=== PATIENT | male | born 1980 ===

== ENCOUNTER 2019-05-22 08:30 | Inpatient (IN) | payer OTHER ==
[~2019-05-22] VITALS: Ht 185.4 cm; Wt 77.9 kg
[2019-05-22 10:00] LABS: BASOPHILS ABSOLUTE AUTO 0.02 K/mm3 (0.00-0.23); BASOPHILS PERCENT AUTO 0 % (0-2); EOSINOPHILS PERCENT AUTO 0 % (0-6); Hematocrit 48.4 % (37.0-53.0); Hemoglobin 16.6 g/dL (13.5-17.5); IMMATURE GRAN ABSOLUTE AUTO 0.07 K/mm3 (0.00-0.10); IMMATURE GRAN PERCENT AUTO 1 % (0-1); LYMPHOCYTES ABSOLUTE AUTO 0.46 K/mm3 (0.84-5.20); LYMPHOCYTES PERCENT AUTO 3 % (21-46); MONOCYTES ABSOLUTE AUTO 0.66 K/mm3 (0.16-1.47); MONOCYTES PERCENT AUTO 5 % (4-13); Mean Corpuscular HGB 29.3 pg (26.0-34.0); Mean Corpuscular HGB Conc 34.3 g/dL (31.5-36.5); Mean Corpuscular Volume 85 fL (80-100); Mean Platelet Volume 11.1 fL (9.1-12.4); NEUTROPHILS ABSOLUTE AUTO 13.05 K/mm3 (1.96-9.15); NEUTROPHILS PERCENT AUTO 92 % (41-73); Platelet Count 148 K/mm3 (150-400); RDW Coefficient Variation 13.7 % (11.7-14.2); Red Blood Cell Count 5.67 M/mm3 (4.30-5.90); White Blood Cell Count 14.26 K/mm3 (4.00-11.30)
[2019-05-22 10:17] LABS: Alanine Aminotransfer (ALT/SGP 48 U/L (12-78); Albumin, Blood 3.7 g/dL (3.4-5.0); Albumin/Globulin Ratio 0.8 (0.8-1.8); Anion Gap 11 mmol/L (6-16); Aspartate Aminotrans (AST/SGOT 73 U/L (12-37); Blood Urea Nitrogen 28 mg/dL (8-24); Bun/Creatinine Ratio 36.5 (12.0-20.0); CO2, Blood 24 mmol/L (21-32); Calcium, Blood 9.6 mg/dL (8.5-10.1); Chloride, Blood 105 mmol/L (98-108); Creatinine, Blood 0.77 mg/dL (0.60-1.20); Ethanol (Alcohol), Blood, Med <3 mg/dL; Globulin, Blood 4.4 g/dL (2.2-4.0); Glomerular Filtration Rate >60 (60-); Glucose, Blood 137 mg/dL (70-99); Potassium, Blood 3.3 mmol/L (3.5-5.5); Sodium, Blood 140 mmol/L (136-145); Total Protein, Blood 8.1 g/dL (6.4-8.2)
[2019-05-22 10:18] LABS: Alk Phos 73 U/L (50-136)
[2019-05-22] MEDS ORDERED: Catapres0.1 MG PO (11:39)
[2019-05-22 13:33] LABS: Salicylate <1.7 mg/dL (2.8-20.0)
[2019-05-22 13:36] LABS: Acetaminophen, Random <2.0 ug/mL (10.0-30.0)
[2019-05-22 13:51] LABS: U Amphetamine Screen Not Detected; U Methamphetamine Screen Not Detected
[2019-05-22 13:52] LABS: U Barbituate Screen Not Detected; U Benzodiazapine Screen Not Detected; U Buprenorphine Screen Not Detected; U Cannabinoids Screen DETECTED; U Cocaine Screen Not Detected; U Methadone Screen Not Detected; U Opiates Screen Not Detected; U Oxycodone Screen Not Detected; U Phencyclidine Screen Not Detected; U Propoxyphene Screen Not Detected
[2019-05-22 14:50] LABS: Creatine Kinase MB 60.3 ng/mL (0.0-3.6); Creatine Kinase MB Index 4.3 (0.0-4.0)
[2019-05-22 15:28] LABS: Source, Urine Catheter
[2019-05-22 15:35] LABS: Blood, Urine 2+ (Neg); Glucose Qualitative, Urine Neg (Neg); Ketones, Urine 3+ (Neg); Leukocyte Esterase, Urine 1+ (Neg); Nitrite, Urine Neg (Neg); Protein, Urine 2+ (Neg); Specific Gravity, Urine 1.025 (1.003-1.022); Urobilinogen, Urine 2+ (Normal)
[2019-05-22 15:42] LABS: Appearance, Urine Clear (Clear); Bilirubin, Urine 1+ (Neg); Color, Urine Amber (P-Yellow)
[2019-05-22 15:44] LABS: Mucus Mod (0-Heavy)
[2019-05-22 15:47] LABS: Yeast/Fungi Urine Few /hpf
[2019-05-22 15:48] LABS: Bacteria Few /hpf; Squamous Epithelial Cells Not Seen /hpf (Few)
[2019-05-22 18:19] LABS: International Normalized Ratio 1.08; Prothrombin Time Results 11.5 Sec (9.7-11.5)
--- NOTE | 2019-05-22 18:40 | NUR ---
no acute changes to patient.
--- NOTE | 2019-05-22 18:42 | NUR ---
PT ADMITTED FROM ED THIS SHIFT. HE IS NON VERBAL, ONLY MOANS. PT HAS NO PEDAL PULSE IN RIGHT DORSAL . HE CANNOT ANSWER ANY QUESTIONS. WAITING ON LABS. PT ON CAMERA.
--- NOTE | 2019-05-22 20:15 | NUR ---
NS BOLUS INFUSING AT 999 mL/HR. IV HEPARIN 4,200 GIVEN PER [facility]. IV HEPARIN INFUSING AT 14.6 mL/HR. PATIENT MOANING AND AGITATED IN BED. NON-VERBAL AT THIS TIME.
--- NOTE | 2019-05-22 20:18 | NUR ---
[facility] EUGENE REPORTS ST140'S.
--- NOTE | 2019-05-22 20:33 | NUR ---
ST [address]'S. PATIENT LESS AGITATED AND RESTING. NON-VERBAL WITH LESS MOANING. NS BOLUS INFUSING AND IV HEPARIN INFUSING.
--- NOTE | 2019-05-22 21:00 | NUR ---
VINCENT SEPTIC TANK SERVICER ORDERED BILATERAL SOFT WRIST RESTRAINTS. PATIENT PULLING AT IV LINES AND TELE CORDS AND AGITATED AT THIS TIME. NS INFUSING AT 125 mL/HR. IV ROCEPH STARTED. IV HEPARIN INFUSING. WILL CONTINUE TO MONITOR.
--- NOTE | 2019-05-22 23:04 | NUR ---
BP 161/110. IV TRANDATE 10 MG GIVEN PER [facility] FOR SBP >150. TELE MONITORING. HR CHANGED FROM ST 113 TO NSR 94.
--- NOTE | 2019-05-22 23:10 | NUR ---
ELECTROENCEPHALOGRAPHIC TECHNICIAN REPORTS PATIENT WENT FROM ST 112 TO NSR 91. IV TRANDATE 10 MG GIVEN PER [facility] FOR SBP>150.
--- NOTE | 2019-05-23 00:08 | NUR ---
PATIENT TRANSFER TO ICU 13. REPORT GIVEN TO SARAH BAKER.
--- NOTE | 2019-05-23 00:48 | NUR ---
RECEIVED PT FROM MEDICAL NURSE AT 2355, WITH BEDSIDE UPDATE. PT RESPONDS TO PAIN, BUT NOT SPEECH, NAME, OR COMMANDS. CHECKED PT FOR LICE, NONE SEEN, NO EGGS ON SHAFTS. PT GIVEN THOROUGH BATH AND HAIR WASHED, HOWEVER, HAIR IS STILL MATTED IN BACK. SOFT RESTRAINTS READJUSTED TO NEW BED. PULSES BLE DOPPLERED.
--- NOTE | 2019-05-23 00:57 | NUR ---
INCREASED KG ON HEPARIN GTT FROM 56KG TO 59KG PER PHARMACY
[2019-05-23 02:34] LABS: BASOPHILS ABSOLUTE AUTO 0.01 K/mm3 (0.00-0.23); BASOPHILS PERCENT AUTO 0 % (0-2); EOSINOPHILS ABSOLUTE AUTO 0.01 K/mm3 (0.00-0.68); EOSINOPHILS PERCENT AUTO 0 % (0-6); Hematocrit 39.1 % (37.0-53.0); Hemoglobin 13.1 g/dL (13.5-17.5); IMMATURE GRAN ABSOLUTE AUTO 0.07 K/mm3 (0.00-0.10); IMMATURE GRAN PERCENT AUTO 1 % (0-1); LYMPHOCYTES ABSOLUTE AUTO 0.35 K/mm3 (0.84-5.20); LYMPHOCYTES PERCENT AUTO 2 % (21-46); MONOCYTES ABSOLUTE AUTO 0.85 K/mm3 (0.16-1.47); MONOCYTES PERCENT AUTO 6 % (4-13); Mean Corpuscular HGB 29.3 pg (26.0-34.0); Mean Corpuscular HGB Conc 33.5 g/dL (31.5-36.5); Mean Platelet Volume 10.9 fL (9.1-12.4); NEUTROPHILS ABSOLUTE AUTO 13.07 K/mm3 (1.96-9.15); NEUTROPHILS PERCENT AUTO 91 % (41-73); Platelet Count 145 K/mm3 (150-400); RDW Coefficient Variation 14.1 % (11.7-14.2); RDW Standard Deviation 42.7 fL (35.1-46.3); Red Blood Cell Count 4.47 M/mm3 (4.30-5.90); White Blood Cell Count 14.36 K/mm3 (4.00-11.30)
[2019-05-23 02:37] LABS: Mean Corpuscular Volume 88 fL (80-100)
[2019-05-23 02:58] LABS: Alanine Aminotransfer (ALT/SGP 54 U/L (12-78); Albumin, Blood 2.9 g/dL (3.4-5.0); Albumin/Globulin Ratio 0.9 (0.8-1.8); Alk Phos 54 U/L (50-136); Anion Gap 5 mmol/L (6-16); Aspartate Aminotrans (AST/SGOT 122 U/L (12-37); Bilirubin, Total 0.8 mg/dL (0.1-1.0); Blood Urea Nitrogen 19 mg/dL (8-24); CO2, Blood 25 mmol/L (21-32); Calcium, Blood 8.2 mg/dL (8.5-10.1); Chloride, Blood 115 mmol/L (98-108); Creatinine, Blood 0.79 mg/dL (0.60-1.20); Globulin, Blood 3.4 g/dL (2.2-4.0); Glomerular Filtration Rate >60 (60-); Glucose, Blood 114 mg/dL (70-99); Potassium, Blood 3.5 mmol/L (3.5-5.5); Sodium, Blood 145 mmol/L (136-145); Total Protein, Blood 6.3 g/dL (6.4-8.2)
[2019-05-23 03:07] LABS: CPK Creatine Kinase 2300 U/L (39-308)
--- NOTE | 2019-05-23 06:47 | NUR ---
PT CONTINUED TO BE RESTLESS THROUGH SHIFT, AND IS STILL NOT RESPONDING TO VOICE, ONLY PAIN AND COLD. PT TOLERATING RESTRAINTS.
--- NOTE | 2019-05-23 07:36 | NUR ---
ASSUMED CARE NOTE REPORT RECEIVED FROM SARAH RN AND OLIVIA SHORT. BEDSIDE ROUNDING DONE. PT RESTING IN BED WITH EYES CLOSED. PT MOANING INTERMITTENTLY, PER REPORT PT WITHOUT ANY FURTHER VOCALIZATIONS. SBP IN 160S, HR IN 60-70S. PER REPORT PT WITH LABETALOL PRN FOR SBP GREATER THAN 150S, BUT THE PT'S BP DOES NOT RESPOND WHILE THE HR DOES. SEE FLOWSHEET FOR VS. PT VERY EMACIATED. FEET SWOLLEN AND DISCOLORED. TOES ON BOTH FEET PURPLE/BLACK, NO BLANCHING. SKIN WARM TO TOUCH. PEDAL PULSE TO R FOOT FAINT, PER REPORT THIS IS IMPROVED FROM ADMIT WHEN THERE WAS NO PALPABLE PEDAL PULSE. PEDAL PULSE TO L FOOT STRONG. NS RUNNING AT 125ML/HR. HEPARIN GTT RUNNING AT 14U/KG/HR WITH DOSING WEIGHT OF 59KG PER ORDER, PHARMACY MANAGING. NO S/SX DISTRESS NOTED. BED IN LOWEST POSITION, UPPER SIDE RAILS RAISED. CALL LIGHT IN REACH. WILL CONT TO MONITOR PT.
--- NOTE | 2019-05-23 10:11 | NUR ---
HEPARIN TITRATE HEPARIN GTT TITRATED UP TO 15U/KG/HR PER PHARMACY ORDERS.
--- NOTE | 2019-05-23 10:39 | NUR ---
DR MORA ROUNDS DR MORA ROUNDED, PUSHPINDER, SUPERVISOR HEADING PRESENT. DR MORA AWARE OF PT'S CONTINUED AMS WITH MOANING AND OCCASIONAL SHOUTING ONLY VOCALIZATIONS. DR MORA UPDATED ON STATUS OF R PEDAL PULSE NOW PALPABLE WHERE ON ADMIT WAS BY DOPPLER ONLY. PER DR MORA, PLAN TO CONTINUE HEPARIN GTT AND PT TO REMAIN IN ICU OVERNIGHT. NO FURTHER CHANGES TO PLAN OF CARE AT THIS TIME. WILL CONT TO MONITOR PT.
--- NOTE | 2019-05-23 11:37 | NUR ---
SHIFT UPDATE PT CONTINUES TO REST WITH EYES CLOSED, AWAKENING OCCASIONALLY MOANING OR SHOUTING. WHEN CHANGING ATTENDS D/T URINARY INCONTINENCE, PT DID ASK FOR WATER. ATTEMPTS TO ELICIT FURTHER RESPONSE FROM PT UNSUCCESSFUL. HEPARIN GTT REMAINS RUNNING AT 15U/KG/HR PER PHARMACY DOSING. NS RUNNING AT 100ML/HR PER ORDERS. PT'S SBP IN 170S, LABETALOL GIVEN PER ORDERS. SEE FLOWSHEET FOR VS. WILL CONT TO MONITOR PT. BED IN LOWEST POSITION, SIDE RAILS RAISED. CALL LIGHT IN REACH.
--- NOTE | 2019-05-23 15:37 | NUR ---
ATIVAN PT YELLING OUT FOR "WATER". MOUTH SWABS USED. PT INFORMED OF REASON WHY IT IS NOT SAFE AT THIS TIME FOR PT TO HAVE WATER. PT CONTINUES TO CALL OUT FOR "WATER". ATIVAN 1MG IV GIVEN PER PRN ORDER. PT'S SBP REMAINS IN 160-170S DESPITE LABETALOL DOSE. PLAN TO TRIAL ANOTHER DOSE LABETALOL PER ORDERS WHEN DUE. WILL CONT TO MONITOR PT.
--- NOTE | 2019-05-23 18:11 | NUR ---
HYPERTENSION CALL TO DR MORA REGARDING PT'S CONTINUED SBP IN 160-180S DESPITE LABETALOL X2 AND ATIVAN FOR INCREASED AGITATION AND FENTANYL FOR POSSIBLE BEHAVIOR R/T PAIN WITH REPERFUSION TO FEET. ORDERS OBTAINED FOR HYDRALAZINE 10MG IV Q6P FOR SBP GREATER THAN 160.
--- NOTE | 2019-05-23 18:48 | NUR ---
HEPARIN HEPARIN GTT TITRATED TO 16U/KG/HR PER PHARMACY DOSING.
--- NOTE | 2019-05-23 20:00 | NUR ---
ASSUMPTION OF CARE: PT RESPONDING TO PAIN BUT NO OTHER VERBAL COMMANDS. ABLE TO REPOSITION SELF. IN SR, SBP 160-180S, HR 60-70S. SPO2 >90% ON RA. RADIAL AND PEDAL PULSES STRONG. PT IS CURRENTLY NPO, NO BM. INCONTINENT OF URINE. LWRIST AND LAC IV INFUSING WITH HEPARIN 16U AND NS 100MLS. TOES ARE BILAT BLACK AND COOL TO THE TOUCH. WILL CONTINUE TO MONITOR
--- NOTE | 2019-05-23 23:30 | NUR ---
PT AGITATED, PULLING AT RESTRAINTS, CALLING OUT. FENTANYL AND ATIVAN GIVEN EARLIER IN SHIFT WITH LITTLE EFFECT. PRECEDEX ORDER RECEIVED FROM [facility]INC[facility]. ZYPREXA IM ALSO ORDERED. PT CURRENTLY RESTING COMFORTABLY. DURING MOMENT OF AGITATION PT WAS ABLE TO VERBALIZE THAT HE NEEDED TO PEE AND WAS THIRSTY. WILL CONTINUE TO MONITOR
[2019-05-24 01:20] LABS: BASOPHILS PERCENT AUTO 0 % (0-2); EOSINOPHILS ABSOLUTE AUTO 0.01 K/mm3 (0.00-0.68); EOSINOPHILS PERCENT AUTO 0 % (0-6); Hemoglobin 12.5 g/dL (13.5-17.5); IMMATURE GRAN ABSOLUTE AUTO 0.04 K/mm3 (0.00-0.10); IMMATURE GRAN PERCENT AUTO 0 % (0-1); LYMPHOCYTES ABSOLUTE AUTO 0.31 K/mm3 (0.84-5.20); LYMPHOCYTES PERCENT AUTO 3 % (21-46); MONOCYTES ABSOLUTE AUTO 0.34 K/mm3 (0.16-1.47); MONOCYTES PERCENT AUTO 4 % (4-13); Mean Corpuscular HGB 28.9 pg (26.0-34.0); Mean Corpuscular HGB Conc 32.9 g/dL (31.5-36.5); Mean Corpuscular Volume 88 fL (80-100); Mean Platelet Volume 10.8 fL (9.1-12.4); NEUTROPHILS ABSOLUTE AUTO 8.48 K/mm3 (1.96-9.15); NEUTROPHILS PERCENT AUTO 92 % (41-73); Platelet Count 122 K/mm3 (150-400); Red Blood Cell Count 4.32 M/mm3 (4.30-5.90); White Blood Cell Count 9.18 K/mm3 (4.00-11.30)
[2019-05-24 01:32] LABS: International Normalized Ratio 1.09; Prothrombin Time Results 11.6 Sec (9.7-11.5)
[2019-05-24 01:33] LABS: Anion Gap 8 mmol/L (6-16); Blood Urea Nitrogen 8 mg/dL (8-24); Bun/Creatinine Ratio 16.3 (12.0-20.0); CO2, Blood 23 mmol/L (21-32); Calcium, Blood 8.6 mg/dL (8.5-10.1); Chloride, Blood 114 mmol/L (98-108); Creatinine, Blood 0.49 mg/dL (0.60-1.20); Glomerular Filtration Rate >60 (60-); Glucose, Blood 101 mg/dL (70-99); Potassium, Blood 2.9 mmol/L (3.5-5.5); Sodium, Blood 145 mmol/L (136-145)
--- NOTE | 2019-05-24 03:30 | NUR ---
*LATE ENTRY* FROM 2099 TO 0100 PT AGITATED, WRITHING/THRASHING IN BED, PULLING AT RESTRAINTS, CALLING OUT. AT ONE POINT PT HAD BEEN ABLE TO LOOSEN RESTRAINTS BY PULLING. PT INITIALLY GIVEN ATIVAN WITH MINIMAL EFFECT. PRN FENTANYL GIVEN WITH MINIMAL EFFECT. PT CONTINUED THRASHING, CALLING OUT, PULLING AT ATTENDS AND DISCONNECTING SPO2 MONITOR. HOSPITALIST [facility] ON UNIT AND ORDERED PRECEDEX DRIP. INITIAL TITRATION SET AT 0.2MCG. PT STILL WRITHING/THRASHING IN BED AND FIGHTING RESTRAINTS. DRIP INCREASED TO 0.4MCG WITH LITTLE EFFECT. DRIP INCREASED TO 0.7MCG WITH LITTLE EFFECT. RECEIVED ORDERS FROM [facility]ARK OK TO INCREASE TO MAX DOSE OF PRECEDEX TO 1.4MCG. PT BEGAN TO CALM AT THIS DOSE. PT GABRIEL MENG, AND MYSELF WERE ABLE TO COMPLETE A BED BATH AND PT WAS REACHING UP TO RUB FACE.
--- NOTE | 2019-05-24 05:54 | NUR ---
SHIFT SUMMARY: PT CURRENTLY RESTING COMFORTABLY. PT HAD A PERIOD OF VERBALLY EXPRESSING NEEDS STATING HE WAS THIRSTY AND NEEDED TO PEE. HOWEVER STILL HAD DIFFICULTY FOLLOWING COMMANDS. SBP 140-150S, HR IN THE 60-70S. RADIAL AND PEDAL PULSES STRONG. TOES BILAT REMAIN BLACK AND COOL TO THE TOUCH. PT HAS LWRIST AND LAC IVS INF WITH HEPARIN AT 17, PRECEDEX AT 1.0, AND NS AT 100. POTASSIUM 2.9 THIS AM. ORDERS RECEIVED FROM DR. GHOTRA FOR K+ REPLACEMENT. WILL PASS REPORT TO NEXT SHIFT
--- NOTE | 2019-05-24 11:29 | NUR ---
REASSESSMENT: PT WAS ONLY SLIGHTLY MOANING THIS MORNING, NOT PULLING ON RESTRAINTS SO PRECEDEX TITRATED DOWN TO 0.2MCG/KG/HR TO SEE IF PT WILL WAKE UP MORE. ALSO NOTED THAT PT'S PUPILS ARE UNRESPONSIVE TO LIGHT AND UNEQUAL. THEY HAVE VARIED IN SIZE FROM 2MM TO 5MM, BUT HAVE NEVER RESPONDED TO LIGHT AND PT'S GAG REFLEX WAS EXTREMEMLY WEAK. WITH PRECEDEX LOWER PT MOANS WITH A STERNAL RUB, WON'T OPEN HIS EYES, PUPILS CONTINUE TO BE UNRESPONSIVE AND UNABLE TO GET A GAG REFLEX. PRECEDEX TURNED OFF AND THERE WAS NO INCREASE IN PT'S NEURO STATUS SO DR. SANTANA NOTIFIED. RECEIVED ORDER FOR HEAD CT. PRECEDEX TURNED BACK ON AT LOW DOSE TO ENSURE GOOD HEAD CT. WITH MOVING PT TO CT AND BACK PT MOANED MORE, REACHED HIS ARMS UP TO HIS FACE AND ARMS, BUT STILL WON'T OPEN HIS EYES OR DO ANYTHING THAN MOAN. LUNGS ARE COARSE ON THE R SIDE, ON RA. SR, HYPERTENSIVE, HYDRALAZINE GIVEN ONCE. CONDOM CATH DRAINING YELLOW URINE. PEDAL PULSES ARE STRONG ON THE L FOOT, FAINT ON THE R AND CONFIRMED WITH DOPPLER ON THE R. DISCOLORATION TO FEET UNCHANGED FROM THIS MORNING WHEN IT WAS MARKED. IV FLUIDS STARTED PER DR. SANTANA. CONTINUING TO MONITOR.
[2019-05-24 15:24] LABS: BASOPHILS ABSOLUTE AUTO 0.01 K/mm3 (0.00-0.23); BASOPHILS PERCENT AUTO 0 % (0-2); EOSINOPHILS ABSOLUTE AUTO 0.01 K/mm3 (0.00-0.68); EOSINOPHILS PERCENT AUTO 0 % (0-6); Hematocrit 38.3 % (37.0-53.0); Hemoglobin 13.1 g/dL (13.5-17.5); IMMATURE GRAN ABSOLUTE AUTO 0.03 K/mm3 (0.00-0.10); IMMATURE GRAN PERCENT AUTO 0 % (0-1); LYMPHOCYTES ABSOLUTE AUTO 0.27 K/mm3 (0.84-5.20); LYMPHOCYTES PERCENT AUTO 3 % (21-46); MONOCYTES ABSOLUTE AUTO 0.23 K/mm3 (0.16-1.47); MONOCYTES PERCENT AUTO 3 % (4-13); Mean Corpuscular HGB 29.4 pg (26.0-34.0); Mean Corpuscular HGB Conc 34.2 g/dL (31.5-36.5); Mean Corpuscular Volume 86 fL (80-100); Mean Platelet Volume 11.2 fL (9.1-12.4); NEUTROPHILS ABSOLUTE AUTO 8.68 K/mm3 (1.96-9.15); NEUTROPHILS PERCENT AUTO 94 % (41-73); Platelet Count 121 K/mm3 (150-400); RDW Standard Deviation 42.8 fL (35.1-46.3); Red Blood Cell Count 4.45 M/mm3 (4.30-5.90); White Blood Cell Count 9.23 K/mm3 (4.00-11.30)
--- NOTE | 2019-05-24 15:26 | NUR ---
Pt resting in bed and is intubated. Pt appears comfortable with no S/S of distress at this time. Pt was coded earlier before this RN visit. Spoke with Dr Brooks and discussed case. Pt was found down prior to coming to the hospital. No information is known regarding address or NOK. Spoke with Caremanager Bridges and discussed case. Yuilana is currently working with local authorities to track down NOK or last known address. Spoke with bedside RN Magy and discussed case. Palliative Care will remain available.
[2019-05-24 15:42] LABS: Alanine Aminotransfer (ALT/SGP 49 U/L (12-78); Albumin, Blood 2.5 g/dL (3.4-5.0); Albumin/Globulin Ratio 0.7 (0.8-1.8); Alk Phos 50 U/L (50-136); Anion Gap 9 mmol/L (6-16); Aspartate Aminotrans (AST/SGOT 47 U/L (12-37); Bilirubin, Total 0.7 mg/dL (0.1-1.0); Blood Urea Nitrogen 9 mg/dL (8-24); Bun/Creatinine Ratio 21.6 (12.0-20.0); CO2, Blood 21 mmol/L (21-32); Calcium, Blood 8.6 mg/dL (8.5-10.1); Chloride, Blood 116 mmol/L (98-108); Creatinine, Blood 0.42 mg/dL (0.60-1.20); Globulin, Blood 3.7 g/dL (2.2-4.0); Glomerular Filtration Rate >60 (60-); Glucose, Blood 169 mg/dL (70-99); Magnesium, Blood 2.1 mg/dL (1.6-2.4); Phosphorus, Blood 1.5 mg/dL (2.5-4.9); Potassium, Blood 2.6 mmol/L (3.5-5.5); Sodium, Blood 146 mmol/L (136-145); Total Protein, Blood 6.2 g/dL (6.4-8.2)
--- NOTE | 2019-05-24 15:42 | NUR ---
Responded to code blue. No family present and pt is non-responsive. According to ED physician documentation, pt spoke in greenlandic upon admission. Prayed for pt at bedside and will remain available.
[2019-05-24 15:44] LABS: International Normalized Ratio 1.07; Prothrombin Time Results 11.4 Sec (9.7-11.5)
--- NOTE | 2019-05-24 15:56 | NUR ---
CODE BLUE PT'S HR DROPPED TO THE 40S ON MONITOR. WENT TO CHECK ON HIM AND PT WAS ONLY AGONAL BREATHING, SPO2 WAS 88% AND DROPPING ON RA. CODE CALLED AT 1445 AND BAGGING INITIATED. HR REMAINED IN THE 40S WITH A PULSE, 1 AMP ATROPINE GIVEN AT 1449 AND NS BOLUS STARTED FOR LOW BP. DR. DE LEON INTUBATED PT AT 1451. TUBE PLACEMENT CONFIRMED BY DR. DE LEON VIA XRAY, LABS DRAWN. EKG DONE AND SHOWED ST WITH PROLONGED QT. OGT PLACED AND CONFIRMED BY AUSCULTATION, HOOKED TO LIS. SPUTUM SAMPLE SENT. NS BOLUS STOPPED WHEN PT'S BP BECAME HYPERTENSIVE. PT WAS STACKING HIS BREATHS ON THE VENTILATOR, HR IN THE 1TEENS AND SBP IN THE 200S SO PROPOFOL STARTED AND PT APPEARS MORE COMFORTABLE ON THE VENT AND SBP DOWN IN THE 150S. HR ST AT 106. CARE MANAGEMENT WORKING ON TRACKING DOWN NEXT OF KIN. RT WORKING ON DRAWING ABG AND LAB DRAWING BLOOD CULTURES.
[2019-05-24 16:04] LABS: PCO2 Arterial 24.2 mmHg (35-45); PO2 Arterial 115 mmHg (80-100); pH Blood Arterial 7.52 (7.35-7.45)
[2019-05-24 16:51] LABS: Source, Urine Catheter
[2019-05-24 16:58] LABS: Bilirubin, Urine Neg (Neg); Blood, Urine Neg (Neg); Glucose Qualitative, Urine 1+ (Neg); Ketones, Urine 3+ (Neg); Leukocyte Esterase, Urine Neg (Neg); Nitrite, Urine Neg (Neg); Protein, Urine Neg (Neg); Urobilinogen, Urine NORM (Normal)
[2019-05-24 17:00] LABS: Appearance, Urine Clear (Clear); Color, Urine Yellow (P-Yellow)
--- NOTE | 2019-05-24 17:39 | NUR ---
BOLUS PT'S SBP DROPPED TO THE 90S THEN 40S, HR WENT FROM LOW 100S TO 60S. PROPOFOL STOPPED, BOLUS RESTARTED AND DR. DE LEON NOTIFIED. WITH BOLUS SBP CAME UP TO THE 70S, HR IN THE 70S WELL. DR. DE LEON GAVE ORDERS FOR A SECOND NS BOLUS AND LEVOPHED. SHE IS ALSO PLACING A CENTRAL LINE CURRENTLY. PT HAD NO URINE OUTPUT SINCE EARLY AFTERNOON AND LOWER PELVIS APPEARED BLOATED. BLADDER SCAN SHOWED GREATER THAN 999ML OF URINE. DR. DE LEON NOTIFIED AND TEMP TRIPLETT PLACED. THIS ALSO REVEALED BODY TEMP OF 91 F. DISCUSSED PLACING BEAR HUGGER ON PT AND DR. DE LEON SAID TO HOLD OFF FOR NOW. CONTINUING TO MONITOR.
--- NOTE | 2019-05-24 18:41 | NUR ---
JEWELRY REMOVED PT'S METAL RING AND NECKLACE REMOVED AND PLACED IN SPECIMEN CUP. CUP PLACED WITH THE REST OF PT'S BELONGINGS.
--- NOTE | 2019-05-24 19:30 | NUR ---
ASSUMED CARE OF PT, BEDSIDE REPORT RECEIVED. PT IS RECLINING IN BED, INTUBATED, NO SEDATION INFUSING AT THIS TIME, PT IS NONRESPONSIVE TO PAIN, VENT SETTINGS AC 16, TV 500, FIO2 40%, PEEP 5, PT IS NOTED TO NOT HAVE ANY SPONTANEOUS RESPIRATIONS AT THIS TIME, SATS ARE 99%, HRR, SINUS ON MONITOR, ST ELEVATION IS NOTED IN LEAD II, ON VIEWING ALL LEADS, ST ELEVATION IS NOTED IN LEADS II, III, AND aVF, EKG IS OBTAINED AND ST ELEVATION IS NOTED IN V3, V4, V5, AND V6 ALL 1MM OF ELEVATION OR LESS, RESULTS PHONED TO DR DE LEON, ORDERS FOR LABS OBTAINED, PRESSURE IS MAINTAINING WITH NS BOLUS INFUSING AND LEVOPHED AT 2 MCG/MIN. NORMOACTIVE BOWEL TONES ARE NOTED, OG IN PLACE TO LIS, NO DRAINAGE IS NOTED AT THIS TIME, ABD SOFT, NO RESPONSE TO PALPATION. TEMP PROBE TRIPLETT IN PLACE, DRAINING COPIOUS AMOUNTS OF CLEAR PALE YELLOW URINE, WILL MONITOR. CENTRAL LINE TO LEFT IJ, DRESSING CDI, SITE WNL.
[2019-05-24 20:56] LABS: Creatine Kinase MB 12.5 ng/mL (0.0-3.6); Creatine Kinase MB Index 3.6 (0.0-4.0); Troponin I 0.019 ng/mL (0.000-0.040)
--- NOTE | 2019-05-24 21:15 | NUR ---
TROPONIN RESULTS PHONED TO DR DE LEON, ORDERS RECEIVED.
--- NOTE | 2019-05-25 01:30 | NUR ---
CRITICAL SODIUM LEVEL RESULTS PHONED TO DR DE LEON, PT I&O DISCUSSED, ORDERS RECEIVED, WILL CHANGE IVF TO D51/2NS AT 200 ML/HR SOON VERIFIED BY PHARMACY.
[2019-05-25 02:13] LABS: Source, Urine Catheter
[2019-05-25 02:17] LABS: Bilirubin, Urine Neg (Neg); Blood, Urine Neg (Neg); Glucose Qualitative, Urine Neg (Neg); Ketones, Urine Neg (Neg); Leukocyte Esterase, Urine Neg (Neg); Nitrite, Urine Neg (Neg); Protein, Urine Neg (Neg); Specific Gravity, Urine 1.005 (1.003-1.022); Urobilinogen, Urine NORM (Normal)
[2019-05-25 02:25] LABS: Appearance, Urine Clear (Clear); Color, Urine Yellow (P-Yellow)
[2019-05-25 05:37] LABS: BASOPHILS ABSOLUTE AUTO 0.01 K/mm3 (0.00-0.23); BASOPHILS PERCENT AUTO 0 % (0-2); EOSINOPHILS ABSOLUTE AUTO 0.01 K/mm3 (0.00-0.68); EOSINOPHILS PERCENT AUTO 0 % (0-6); Hematocrit 36.4 % (37.0-53.0); Hemoglobin 11.8 g/dL (13.5-17.5); IMMATURE GRAN ABSOLUTE AUTO 0.02 K/mm3 (0.00-0.10); IMMATURE GRAN PERCENT AUTO 0 % (0-1); LYMPHOCYTES ABSOLUTE AUTO 0.11 K/mm3 (0.84-5.20); LYMPHOCYTES PERCENT AUTO 2 % (21-46); MONOCYTES ABSOLUTE AUTO 0.06 K/mm3 (0.16-1.47); MONOCYTES PERCENT AUTO 1 % (4-13); Mean Corpuscular HGB 28.6 pg (26.0-34.0); Mean Corpuscular HGB Conc 32.4 g/dL (31.5-36.5); Mean Corpuscular Volume 88 fL (80-100); Mean Platelet Volume 10.7 fL (9.1-12.4); NEUTROPHILS ABSOLUTE AUTO 5.95 K/mm3 (1.96-9.15); NEUTROPHILS PERCENT AUTO 97 % (41-73); Platelet Count 102 K/mm3 (150-400); RDW Coefficient Variation 14.6 % (11.7-14.2); RDW Standard Deviation 46.2 fL (35.1-46.3); Red Blood Cell Count 4.12 M/mm3 (4.30-5.90); White Blood Cell Count 6.16 K/mm3 (4.00-11.30)
[2019-05-25 05:47] LABS: PCO2 Arterial 32.2 mmHg (35-45); PO2 Arterial 80.3 mmHg (80-100); pH Blood Arterial 7.32 (7.35-7.45)
[2019-05-25 06:05] LABS: CPK Creatine Kinase 275 U/L (39-308); Magnesium, Blood 2.4 mg/dL (1.6-2.4)
[2019-05-25 06:07] LABS: Creatine Kinase MB 11.9 ng/mL (0.0-3.6); Creatine Kinase MB Index 4.3 (0.0-4.0); Troponin I 0.015 ng/mL (0.000-0.040)
[2019-05-25 06:13] LABS: Alanine Aminotransfer (ALT/SGP 39 U/L (12-78); Albumin, Blood 2.1 g/dL (3.4-5.0); Albumin/Globulin Ratio 0.7 (0.8-1.8); Alk Phos 42 U/L (50-136); Anion Gap 7 mmol/L (6-16); Aspartate Aminotrans (AST/SGOT 27 U/L (12-37); Bilirubin, Total 0.6 mg/dL (0.1-1.0); Blood Urea Nitrogen 9 mg/dL (8-24); CO2, Blood 19 mmol/L (21-32); Calcium, Blood 8.4 mg/dL (8.5-10.1); Chloride, Blood 141 mmol/L (98-108); Globulin, Blood 3.2 g/dL (2.2-4.0); Glomerular Filtration Rate >60 (60-); Glucose, Blood 257 mg/dL (70-99); Phosphorus, Blood 1.1 mg/dL (2.5-4.9); Potassium, Blood 2.4 mmol/L (3.5-5.5); Sodium, Blood 167 mmol/L (136-145); Total Protein, Blood 5.3 g/dL (6.4-8.2)
--- NOTE | 2019-05-25 07:28 | NUR ---
PT CONTINUES UNRESPONSIVE THROUGHOUT SHIFT, NO GAG, NO COUGH NOTED WITH ORAL CARE AND SUCTIONING. PUPILS REMAIN FIXED AT 5 ON RIGHT AND 6 ON LEFT, GAZE REMAINS FIXED FORWARD WITH HEAD MOVEMENT SIDE TO SIDE, PT NONRESPONSIVE TO DEEP STERNAL RUB, NO SEDATION ADMINISTERED THIS SHIFT. LEVOPHED GTT TITRATED UP TO 12 MCG/MIN FROM 2 AT BEGINNING OF SHIFT, INTITIAL ST ELEVATION THAT WAS NOTED HAS RESOLVED OF THIS TIME. HEPARIN GTT ADJUSTED PER PHARMACY, DECREASED FROM 18 UNITS/KG AT HS TO PT IS NOW AT 16.5 UNITS/KG. FIO2 TITRATED DOWN TO 30% FROM 40% THROUGHOUT SHIFT, CONTINUES MAINTAINING SATS, LUNGS CONT CLEAR UPPER LOBES, DIM RIGHT BASE, NO SPONT RESPIRATIONS NOTED EARLY IN SHIFT, THIS AM PT'S SPONT RESPIRATIONS WERE 7/MIN PER RT AT TIME OF SPONT BREATHING TRIAL. URINE OUTPUT FOR THIS SHIFT 6950 ML, DR DE LEON AWARE. TOES TO RIGHT FOOT CONTINUE PURPLE, PULSE REMAINS PRESENT, DIFFICULT TO PALPATE BUT CONFIRMED WITH DOPPLER, PULSE TO LEFT FOOT IS FAINT BUT EASILY PALPABLE.
[2019-05-25 07:59] LABS: Thyroid Stimulating Hormone 0.269 uIU/mL (0.360-4.800)
--- NOTE | 2019-05-25 08:00 | NUR ---
INITIAL ASSESSMENT PATIENT INTUBATED. PATIENT NOT ON SEDATION AND WASN'T ON SEDATION AT ANY POINT DURING THE CASE REPAIRER EITHER. PATIENT UNRESPONSIVE. NO MOVEMENT OF EXTREMITIES OR ANY FACIAL EXPRESSIONS/ GRIMACES NOTED. NO GAG, COUGH OR SWALLOW REFLEXES NOTED. LEFT PUPIL 7+ IN SIZE AND R PUPIL 8+ IN SIZE. PUPILS FIXED, NO MOVEMENT NOTED WHEN HEAD TURNED SIDE TO SIDE. PATIENT EMACIATED. PATIENT HAS NO SIGNS OF PAIN OR DISCOMFORT NOTED. PATIENT HAS TEMP OF 91.5 DEGREES FAHRENHEIT THIS AM. BLANKETS ON PATIENT BUT INSTRUCTED BY DR. DE LEON NOT TO ACTIVELY REWARM. PATIENT ON VENT, SETTINGS OF AC 16, TV 500, PEEP 5, AND 30% FIO2. PATIENT RIDING VENT WITH RR AT 16. LUNGS CLEAR THROUGHOUT. NO SPUTUM BEING SUCTIONED FROM ETT AT THIS TIME. PATIENT IN ST WITH PROLONGED QT. HR 60S TO 70S. SBP 80S TO 90S ON LEVOPHED AT 12 MCG/ MINUTE. R RADIAL PULSE 1+ IN STRENGTH AND L RADIAL 2+. R PEDAL AND R TIBIAL PULSES 1+ IN STRENGTH. R PEDAL PULSE 2+ IN STRENGTH AND R TIBIAL 1+ IN STRENGTH. ABDOMEN NONDISTENDED, SOFT, WITH HYPOACTIVE BS NOTED. DATE OF LAST BM UNKNOWN. OG TO LIS, EXCEPT WHEN BEING CLAMPED FOR SHORT TIMES AFTER MED ADMINISTRATION. TEMP PROBE TRIPLETT IN PLACE, DRAINING LARGE AMOUNTS OF LIGHT YELLOW COLORED URINE. SKIN IS DRY WITH SCATTERED BRUISING. PATIENT HAS BLACK AND PURPLE COLORING TO BILAT FEET/ TOES. FEET ARE SWOLLEN, TIGHT, AND COOL TO TOUCH. PICS OF FEET IN PATIENT CHART. HEPARIN DRIP AT 16.5 UNITS/ KG/ HOUR AND D5W AT 200 MLS/ HOUR. BED LOW, CALL LIGHT IN REACH. WILL CONTINUE TO MONITOR PATIENT FREQUENTLY THROUGHOUT SHIFT.
--- NOTE | 2019-05-25 10:16 | NUR ---
Pt resting in bed and is intubated. No S/S of distress at this time. Spoke with Dr Allen and discussed case. Pt has poor prognosis and obtaining NOK contact information is important. Called [facility] [employer]. Staff report without an address no information is known at this time. Called and spoke with Pt's ELVIA Julian. Eliel reports she will head to the office and pull his file. Eliel will call this RN back. Palliative Care will remain available.
--- NOTE | 2019-05-25 10:17 | NUR ---
UPDATED DR. DE LEON ON PATIENT STATUS AND NEURO. INFORMED THAT PATIENT NOT ON SEDATION AT THIS TIME AND WAS NOT ON ANY SEDATION DURING THE NIGHT. INFORMED THAT PATIENT PLACED ON WEAN THIS AM AND HAD 7 RR/ MINUTE ON OWN AND HAD 0 RR/ MINUTE ON OWN LAST NIGHT PER RADIOLOGIC TECHNOLOGIST CHIEF RN. DOCTOR INFORMED THAT LEVOPHED AT 2 MCG/ MINUTE LAST NIGHT AND INCREASED TO 12 MCG/ MINUTE BY THIS AM. INFORMED THAT PATIENT HAD AROUND 7 L URINE OUT ON RADIOLOGIC TECHNOLOGIST CHIEF. INFORMED THAT SODIUM HIGH THIS AM AT 167, POTASSIUM LOW AT 2.4 AND PTT HIGH AT 111.0. INFORMED THAT BLOOD SUGAR IN THE 200S THIS AM. INFORMED THAT QT PROLONGED AT 0.50. INFORMED THAT PATIENT HAD ST ELEVATION ON RADIOLOGIC TECHNOLOGIST CHIEF BUT THAT APPEARS NOT TO HAVE ST ELEVATION AT THIS TIME. INFORMED THAT TEMP 91.5 DEGREES FAHRENHEIT. INFORMED THAT RESTRAINTS DC'D PATIENT CONTINUES TO REMAIN UNRESPONSIVE. INFORMED THAT PATIENT HAS AREA ON R FOOT THAT IS SLIGHTLY MORE PALE THAN WAS ACCORDING TO RADIOLOGIC TECHNOLOGIST CHIEF RN. PIC HAS BEEN TAKEN AND PLACED IN CHART; AREA OUTLINED IN PEN. STATED SHE WOULD PUT SOME ORDERS IN.
--- NOTE | 2019-05-25 10:41 | NUR ---
DR. DE LEON INFORMED OF PHOSPHORUS LEVEL OF 1.1 THIS AM. NO ORDER RECEIVED.
--- NOTE | 2019-05-25 11:37 | NUR ---
Received call back from Pt's PO Eliel. She reports contact number listed is for a friend. Eliel attempted to contact friend but phone number is not valid. El[facility] [place]. One agency had same friend's contact information. Eliel reports attempting to contact another agency where he was jailed but with no success. Eliel reports if she is able to obtain any new information she will call Palliative Care. Spoke with bedside OLIVIA Hernandez and Dr Allen. Relayed discussion with Pt's PO. This RN will place ethics consult due to no decision maker or NOK. PO Eliel Sibley, please see Caremanager's note for confidential contact number. Palliative Care will remain available.
--- NOTE | 2019-05-25 12:00 | NUR ---
PATIENT REMAINS INTUBATED, WITHOUT SEDATION. NEURO STATUS REMAINS UNCHANGED FROM INITIAL ASSESSMENT. SCLERAL EDEMA NOTED. PATIENT REMAINS IN SR WITH PROLONGED QT. HR 60S TO 70S. BP STABLE ON LEVOPHED AT 11 MCG/ MINUTE. PATIENT REMAINS ON SAME VENT SETTINGS. NO CHANGE IN RESP STATUS. URINE NOW DARK YELLOW IN COLOR. UO HAS DECREASED SINCE DESMOPRESSIN GIVEN THIS AM. BLOOD SUGAR OF 124; NO COVERAGE NEEDED. NO OTHER ACUTE CHANGES TO NOTE ON. NO SIGNS OF PAIN. WILL CONTINUE TO MONITOR.
[2019-05-25 13:21] LABS: Base Excess Venous -8.8 mmol/L; Bicarbonate Venous 18.1 mmol/L (24.0-30.0); PCO2 Venous 31.8 mmHg (38-42); PO2 Venous 94.4 mmHg (38-42); pH Blood Venous 7.34 (7.34-7.37)
[2019-05-25 15:55] LABS: Alanine Aminotransfer (ALT/SGP 35 U/L (12-78); Albumin, Blood 1.8 g/dL (3.4-5.0); Albumin/Globulin Ratio 0.6 (0.8-1.8); Alk Phos 36 U/L (50-136); Anion Gap 7 mmol/L (6-16); Aspartate Aminotrans (AST/SGOT 26 U/L (12-37); Bilirubin, Total 0.4 mg/dL (0.1-1.0); Blood Urea Nitrogen 7 mg/dL (8-24); Bun/Creatinine Ratio 11.1 (12.0-20.0); CO2, Blood 18 mmol/L (21-32); Calcium, Blood 7.9 mg/dL (8.5-10.1); Chloride, Blood 136 mmol/L (98-108); Creatinine, Blood 0.63 mg/dL (0.60-1.20); Glomerular Filtration Rate >60 (60-); Glucose, Blood 125 mg/dL (70-99); Phosphorus, Blood 2.2 mg/dL (2.5-4.9); Potassium, Blood 2.8 mmol/L (3.5-5.5); Sodium, Blood 161 mmol/L (136-145); Total Protein, Blood 4.8 g/dL (6.4-8.2)
--- NOTE | 2019-05-25 16:12 | NUR ---
DR. DE LEON INFORMED OF LAB RESULTS OF SODIUM 161, ALBUMIN 1.8, AMMONIA NORMAL AT 18, PHOS 2.[address], [address] DE LEON INFORMED THAT PATIENT HAS ONLY PUT OUT 400 MLS OF DARK YELLOW URINE SINCE DESMOPRESSIN GIVEN THIS AM. INFORMED THAT PATIENT HAS MOSTLY HAD HR IN 60S TO 70S TODAY BUT HAS NOW DIPPED DOWN TO THE HIGH 50S. ORDERS OBTAINED.
--- NOTE | 2019-05-25 16:22 | NUR ---
Echocardiogram performed.
--- NOTE | 2019-05-25 16:36 | NUR ---
PATIENT REMAINS INTUBATED WITHOUT SEDATION. NO CHANGES IN NEURO STATUS ALL DAY. VENT AC INCREASED FROM 16 TO 20. PATIENT CONTINUES TO RIDE THE VENT. PATIENT IN SB TO SR, HR 50S TO 70S. LEVOPHED AT 10 MCG/ MINUTE. PATIENT HAS TEMP OF 91.5 DEGREES FAHRENHEIT. HEPARIN RESTARTED AT 1540 AT 14.5 UNITS/ KG/ HOUR. VHP TF INFUSING AT GOAL RATE OF 20 MLS/ HOUR WITH 30 ML WATER FLUSH Q4H. RESIDUAL OF ZERO. NO OTHER ACUTE CHANGES TO NOTE ON AT THIS TIME. WILL CONTINUE TO MONITOR.
--- NOTE | 2019-05-25 18:26 | NUR ---
SHIFT SUMMARY PATIENT HAS REMAINED INTUBATED, WITH NO SEDATION. PATIENT REMAINS UNRESPONSIVE. NO NEURO IMPROVEMENT THIS SHIFT. PATIENT CONTINUES TO HAVE NO GAG, COUGH OR SWALLOW REFLEXES. PUPILS REMAIN FIXED, UNEQUAL. SCLERAL EDEMA REMAINS. PATIENT'S TEMP HAS BEEN AROUND 91 TO 92 DEGREES FAHRENHEIT ALL DAY. PATIENT HAS NOT HAD ANY SIGNS OF PAIN OR DISCOMFORT. PATIENT'S LUNGS HAVE REMAINED CLEAR ALL DAY. AC INCREASED FROM 16 TO 20, TV REMAINED AT 500, PEEP AT 5 AND FIO2 INCREASED FROM 30 TO 35% BY END OF SHIFT. PATIENT CONTINUES TO RIDE THE VENT. PATIENT HAS BEEN IN SB TO SR, HR 50S TO 70S. PATIENT HAS REMAINED ON 9 TO 12 MCG/ MINUTE OF LEVOPHED ON DAY SHIFT. PATIENT CURRENTLY ON 12 MCG/ MINUTE AT THIS TIME. PULSES REMAIN UNCHANGED. ABDOMEN SOFT, NONDISTENDER, WITH HYPOACTIVE BS. NO BM THIS SHIFT. PATIENT STARTED ON VHP AT GOAL RATE OF 20 MLS/ HOUR WITH 30 ML WATER FLUSH Q4H. RESIDUALS ZERO THIS SHIFT. TEMP PROBE TRIPLETT PUT OUT ADEQUATE OUTPUT. PATIENT HAS HAD LESS OUTPUT OUT AFTER DESMOPRESSIN GIVEN THIS AM. TOTAL INPUT OF 4564 AND TOTAL OUTPUT OF 1760. NO CHANGE TO SKIN. PATIENT REPOSITIONED THROUGHOUT SHIFT. BLOOD SUGARS 103-124; NO INSULIN COVERAGE NEEDED. D5W INFUSING AT 200 MLS/ HOUR. HEPARIN CRITICALLY HIGH DURING SHIFT; HEPARIN DRIP TURNED OFF FOR HOUR AND RESTARTED AT 14.5 UNITS/ KG/ HOUR. PATIENT RECEIVING ZOSYN FOR ANTIBIOTIC. PATIENT HAS RECEIVED 20 MM K PHOS AND ALMOST 100 MEQ THUS FAR OF KCL. LAST BAG OF KCL TO BE HUNG AT 2004 FOR TOTAL OF 120 MEQ KCL TODAY. REPEAT POTASSIUM AND PHOS LABS TO BE DRAWN AFTER LAST POTASSIUM INFUSES. REPEAT SODIUM LAB AT 1999. PATIENT HAD REPEAT HEAD CT TODAY WHICH SHOWED CEREBRAL EDEMA. PATIENT HAD ECHO THAT SHOWED EF OF 60 TO 65%. PATIENT TO HAVE EEG IN AM. NO NEXT OF KIN OR FRIENDS WERE ABLE TO BE FOUND BY PALLIATIVE CARE. REPORT WILL BE GIVEN TO ASSUMING ASSISTANCE REPRESENTATIVE NURSE SHORTLY.
--- NOTE | 2019-05-25 19:15 | NUR ---
ASSUMED CARE OF PT, BEDSIDE REPORT RECEIVED. PT CONTINUES INTUBATED AND REMAINS OFF SEDATION, HE IS NONRESPONSIVE TO DEEP STERNAL RUB AND NOXIOUS STIMULI, NO COUGH IS ELICITED WITH SUCTIONING OF ETT, NO GAG IS NOTED WITH ORAL CARE AND SUCTIONING POSTERIOR OROPHARYNX, EXTREMITIES REMAIN FLACCID, PUPILS CONTINUE 7 ON THE RIGHT, 8 ON THE LEFT, NO REACTION IS NOTED TO LIGHT, SCLERAL EDEMA NOTICED ON DAY SHIFT AND CONTINUES AT THIS TIME, NO EYE MOVEMENT WITH TURINING PT'S HEAD SIDE TO SIDE. ETT 7.5, 24 CM AT LIP, VENT SETTINGS AC 20, TV 500, FIO2 35%, PEEP 5, SATS MID 90S, NO SPONT RESPIRATIONS AT THIS TIME, LUNGS CLEAR THROUGHOUT. HRR, SINUS ON MONITOR, RATE 60S, HYPOTENSION IS NOTED, LEVOPHED GTT INCREASED TO 13 MCG/MIN DURING BEDSIDE REPORT, WILL MONITOR, PULSES ARE PALPABLE X 4 EXTREMITIES, CAP REFILL DELAYED, BILAT LOWER EXTREMITY EDEMA, LOWER EXTREMITIES ELEVATED ON PILLOWS, BILAT HAND EDEMA IS NOTED 2+. VITAL HIGH PROTEIN TUBE FEEDS TO OG TUBE AT 20 ML/HR, RESIDUAL 14 ML, HYPOACTIVE BOWEL TONES, ABD FLAT AND SOFT, NO REACTION TO PALPATION. TEMP PROBE TRIPLETT IN PLACE, DRAINING CLEAR YELLOW URINE TO GRAVITY, TEMP IS IMPROVED FROM LAST NOC HOWEVER CONTINUES LESS THAN 93 DEGREES AT THIS TIME, WILL CONT TO MONITOR. TOES REMAIN PURPLE/BLACK, NO CHANGES FROM THIS AM ARE NOTED AT THIS TIME.
--- NOTE | 2019-05-25 22:26 | NUR ---
POTASSIUM INFUSION COMPLETE FOLLOW UP LABS ORDERED FOR 2300 PER ORDERS.
[2019-05-25 23:25] LABS: Phosphorus, Blood 2.6 mg/dL (2.5-4.9); Potassium, Blood 3.2 mmol/L (3.5-5.5)
[2019-05-26 04:36] LABS: PCO2 Arterial 30.9 mmHg (35-45); PO2 Arterial 69.1 mmHg (80-100); pH Blood Arterial 7.38 (7.35-7.45)
[2019-05-26 05:08] LABS: BASOPHILS PERCENT AUTO 0 % (0-2); EOSINOPHILS ABSOLUTE AUTO 0.11 K/mm3 (0.00-0.68); EOSINOPHILS PERCENT AUTO 3 % (0-6); Hematocrit 36.2 % (37.0-53.0); IMMATURE GRAN ABSOLUTE AUTO 0.01 K/mm3 (0.00-0.10); IMMATURE GRAN PERCENT AUTO 0 % (0-1); LYMPHOCYTES PERCENT AUTO 6 % (21-46); MONOCYTES ABSOLUTE AUTO 0.02 K/mm3 (0.16-1.47); MONOCYTES PERCENT AUTO 1 % (4-13); Mean Corpuscular HGB 29.1 pg (26.0-34.0); Mean Corpuscular HGB Conc 33.1 g/dL (31.5-36.5); Mean Corpuscular Volume 88 fL (80-100); Mean Platelet Volume 11.3 fL (9.1-12.4); NEUTROPHILS ABSOLUTE AUTO 3.07 K/mm3 (1.96-9.15); NEUTROPHILS PERCENT AUTO 90 % (41-73); Platelet Count 83 K/mm3 (150-400); RDW Coefficient Variation 15.7 % (11.7-14.2); RDW Standard Deviation 48.8 fL (35.1-46.3); Red Blood Cell Count 4.13 M/mm3 (4.30-5.90); White Blood Cell Count 3.41 K/mm3 (4.00-11.30)
[2019-05-26 05:24] LABS: Alanine Aminotransfer (ALT/SGP 34 U/L (12-78); Albumin, Blood 1.8 g/dL (3.4-5.0); Albumin/Globulin Ratio 0.5 (0.8-1.8); Alk Phos 38 U/L (50-136); Anion Gap 7 mmol/L (6-16); Aspartate Aminotrans (AST/SGOT 21 U/L (12-37); Bilirubin, Total 0.4 mg/dL (0.1-1.0); Blood Urea Nitrogen 5 mg/dL (8-24); Bun/Creatinine Ratio 7.8 (12.0-20.0); CO2, Blood 19 mmol/L (21-32); Calcium, Blood 7.9 mg/dL (8.5-10.1); Chloride, Blood 127 mmol/L (98-108); Creatinine, Blood 0.64 mg/dL (0.60-1.20); Globulin, Blood 3.4 g/dL (2.2-4.0); Glomerular Filtration Rate >60 (60-); Glucose, Blood 107 mg/dL (70-99); Magnesium, Blood 1.8 mg/dL (1.6-2.4); Phosphorus, Blood 2.6 mg/dL (2.5-4.9); Sodium, Blood 153 mmol/L (136-145); Total Protein, Blood 5.2 g/dL (6.4-8.2)
--- NOTE | 2019-05-26 07:53 | NUR ---
PT CONTINUES UNRESPONSIVE WITHOUT SEDATION, PUPILS REMAIN NONREACTIVE TO LIGHT, LEFT GREATER THAN RIGHT IN SIZE, NO EYE MOVEMENT IS NOTED, EXTREMITIES FLACCID, NONREACTIVE TO NOXIOUS STIMULI, NO GAG, NO COUGH NOTED. 7.[address], PT WAS NOTED TO HAVE A CUFF LEAK AT 0500 THIS AM, TUBE MEASURED AT 23.5 CM AT THE PT'S LIP AT THE TIME, RT NOTIFIED ADDING AIR TO CUFF DID NOT DECREASE LEAK, RT ARRIVED TO BEDSIDE AND CXR WAS REVIEWED WELL CUFF PRESSURES, ETT ADVANCED TO 26 CM AT LIP, BILAT BREATH SOUNDS VERIFIED BY RN AND RT, DR DE LEON NOTIFIED OF CHANGE, NO ORDERS AT THAT TIME. AT 0615 THIS AM, PT SATS WERE NOTED DECREASED TO 86%, LUNG SOUNDS CONTINUED PRESENT AND CLEAR BILAT, FIO2 INCREASED TO 40% AND PT SATS RETURNED TO LOW 90S. PT HAS NOT BEEN NOTED TO HAVE ANY SPONTANEOUS RESPIRATIONS THIS SHIFT. HRR, LEVOPHED TITRATED UP TO 20 AT 0224 THIS AM AND VASOPRESSIN WAS ORDERED, PRIOR TO ARRIVAL OF VASOPRESSIN LEVOPHED WAS TITRATED DOWN AND PT PRESSURES CONTINUED TO MAINTAIN UNTIL APPROXIMATELY 0615 THIS AM AT WHICH TIME PRESSURES WERE NOTED 40S SYSTOLIC, LEVOPHED INCREASED TO 20 MCG/MIN AND VASOPRESSIN WAS STARTED INFUSING. TUBE FEEDS CONTINUE AT GOAL THROUGHOUT SHIFT, HS RESIDUAL WAS 24 ML, MIDNOC RESIDUAL WAS 40 ML, AT 0500 THIS AM PT'S RESIDUAL WAS 700 ML, THIS WAS NOT REINSTILLED. TEMP PROBE TRIPLETT REMAINS IN PLACE 1300 ML OUT THIS SHIFT, PT DOES REMAIN HYPOTHERMIC AT 93.6 DEGREES, PT HAS BEEN MAINTAINED IN WARM ROOM WITH BLANKETS IN PLACE FOR PASSIVE REWARMING PER ORDERS. POTASSIUM LEVEL CONTINUES LOW THIS AM, DR DE LEON NOTIFIED AND REPLACEMENT ORDERED AND INFUSING.
--- NOTE | 2019-05-26 09:19 | NUR ---
ASSUMED CARE OF PT AT 0700. REPORT FROM HAIM BAKER. PT INTUBATED. VENT SETTINGS AC 20/500/5/40%. LUNGS CLEAR. NO SEDATION INFUSING. PT c FIXED AND DILATED PUPILS, UNEQUAL. NO RESPONSE TO PAINFUL STIMULI. NO RESP BEYOND VENT SETTINGS. NSR, RATE 70'S. LEVOPHED INFUSING AT 16 MCG/MIN AND VASOPRESSIN AT 0.04 UNITS/MIN. GOAL TO MAINTAIN MAP >65. TUBE FEEDINGS THROUGH OGT, GOAL OF 20 ML/HR c q4 30ML FLUSH. RESIDUALS 45 ML THIS AM. ABD FLAT, SOFT, NON TENDER. BT X 4. TRIPLETT IN PLACE, PATENT AND DRAINING TO GRAVITY. TEMP 93.9. PASSIVE REWARMING ONLY. DISCOLORATION TO RIGHT FOOT, ALL TOES, PURPLE, COOL. DOPPLER TIBIAL PULSE ONLY. LEFT FOOT TOES 2&3, COOL PURPLE, PULSES BY DOPPLER. PLAN TO REPLACE K, SUPPORT BP AND EEG TODAY. WILL CONTINUE TO MONITOR.
[2019-05-26 12:48] LABS: Potassium, Blood 3.6 mmol/L (3.5-5.5)
--- NOTE | 2019-05-26 17:01 | NUR ---
Inital spritual care note: No family/friends present. Chris is non-responsive. He appears well cared-for by nursing. Prayer provided at bedside. I will remain available.
--- NOTE | 2019-05-26 17:20 | NUR ---
SHIFT SUMMARY PHYSICAL ASSESSMENT REMAINS UNCHANGED THIS SHIFT. PT REMAINS ON VENTILATOR, SETTINGS AC 20/500/5/50%. NEURO ASSESSMENT UNCHANGED, NO RESPONSE TO PAINFUL STIMULI. NO RESP OVER VENT SETTINGS. LEVOPHED INFUSING AT 16 MCG/MIN AND VASOPRESSIN AT 0.04 UNITS/MIN. RESIDUALS c TUBE FEEDINGS 70, 300, 200, 80. CONTINUED AT 20 ML/HR c q4 30 ML FLUSHES. TRIPLETT PATENT AND DRAINING TO GRAVITY, 400ML OF CLEAR KHUSHBU URINE OUT. SKIN TO FEET UNCHANGED. EEG COMPLETE TODAY. DR URBAN CALLED TO REPORT NO BRAIN ACTIVITY. PLAN FOR HEAD CT. CONTINUED ETHICS CONSULT AND PALLATIVE CARE. REPORT TO ONCOMING NURSE.
[2019-05-27 04:46] LABS: Hematocrit 33.9 % (37.0-53.0); Hemoglobin 11.3 g/dL (13.5-17.5); Mean Corpuscular HGB 29.2 pg (26.0-34.0); Mean Corpuscular HGB Conc 33.3 g/dL (31.5-36.5); Mean Corpuscular Volume 88 fL (80-100); NRBC ABSOLUTE 0.02 K/mm3 (0.00-0.02); NRBC Auto 0.4 /100 WBC (0.0-0.2); Platelet Count 60 K/mm3 (150-400); RDW Coefficient Variation 16.1 % (11.7-14.2); Red Blood Cell Count 3.87 M/mm3 (4.30-5.90); White Blood Cell Count 5.59 K/mm3 (4.00-11.30)
[2019-05-27 05:06] LABS: Alanine Aminotransfer (ALT/SGP 33 U/L (12-78); Albumin, Blood 1.4 g/dL (3.4-5.0); Albumin/Globulin Ratio 0.4 (0.8-1.8); Alk Phos 38 U/L (50-136); Anion Gap 8 mmol/L (6-16); Aspartate Aminotrans (AST/SGOT 24 U/L (12-37); Bilirubin, Total 0.4 mg/dL (0.1-1.0); Blood Urea Nitrogen 5 mg/dL (8-24); Bun/Creatinine Ratio 6.9 (12.0-20.0); CO2, Blood 20 mmol/L (21-32); Calcium, Blood 7.1 mg/dL (8.5-10.1); Chloride, Blood 108 mmol/L (98-108); Creatinine, Blood 0.72 mg/dL (0.60-1.20); Globulin, Blood 3.2 g/dL (2.2-4.0); Glomerular Filtration Rate >60 (60-); Glucose, Blood 81 mg/dL (70-99); Potassium, Blood 3.2 mmol/L (3.5-5.5); Sodium, Blood 136 mmol/L (136-145); Total Protein, Blood 4.6 g/dL (6.4-8.2)
[2019-05-27 05:20] LABS: BAND PERCENT MAN 39 % (0-8); BASOPHILS PERCENT MAN 0 % (0-2); EOSINOPHILS ABSOLUTE MAN 0.16 K/mm3 (0.00-0.68); EOSINOPHILS PERCENT MAN 3 % (0-6); LYMPHOCYTES ABSOLUTE MAN 0.16 K/mm3 (0.84-5.20); LYMPHOCYTES PERCENT MAN 3 % (21-46); MONOCYTES ABSOLUTE MAN 0.05 K/mm3 (0.16-1.47); MONOCYTES PERCENT MAN 1 % (4-13); NEUTROPHILS ABSOLUTE MAN 5.19 K/mm3 (1.96-9.15); SEG NEUTROPHILS PERCENT MAN 54 % (41-73); TOTAL CELLS COUNTED 100
--- NOTE | 2019-05-27 06:55 | NUR ---
PETRATRJACINTA TO STANDBY PER CHACHA FROM PHARMACY
--- NOTE | 2019-05-27 07:26 | NUR ---
PT REMAINS NONRESPONSIVE WITHOUT SEDATION, PUPILS CONTINUE NONRESPONSIVE, NEGATIVE DOLL'S EYES, NO RESPONSE TO DEEP STERNAL RUB, NO GAG, NO COUGH, EXTREMITIES REMAIN FLACCID, NO RECTAL TONE. SPOKE WITH ORGAN DONATION LINE SEVERAL TIMES THIS SHIFT REGARDING PT STATUS. ACTIVE REWARMING STARTED WITH LUCIANA HUGGER ON MEDIUM SETTING AT 2240 THIS SHIFT, LUCIANA HUGGER TO STANDBY AT 0240. PT'S TEMP OF THIS TIME IS 99.3, HE CONTINUES NONRESPONSIVE. VENT SETTINGS REMAIN UNCHANGED THROUGHOUT NOC, SATS MAINTAINING MID 90S, NO SPONTANEOUS RESPIRATIONS HAVE BEEN NOTED, LUNGS REMAIN CLEAR THROUGHOUT. LEVOPHED GTT TITRATED UP THROUGHOUT SHIFT, CURRENT RATE IS 20 MCG/MIN, VASOPRESSIN CONTINUES INFUSING. VITAL HIGH PROTEIN TUBE FEEDS CONTINUE AT 20 ML/HR, RESIDUALS 170, 150, AND 40 ML THIS SHIFT, SMALL FORMED, BROWN BM THIS SHIFT X 2, NO RECTAL TONE IS NOTED WITH CLEANING FOLLOWING BMS. TEMP PROBE TRIPLETT REMAINS IN PLACE, URINE OUTPUT 675 ML THIS SHIFT. HEPARIN DC'D PER DR DE LEON, AGATROBAN GTT IN PLACE OF HEPARIN GTT, MANAGED BY PHARMACY. NO SIGNS OF BLEEDING HAVE BEEN NOTED THIS SHIFT.
--- NOTE | 2019-05-27 10:06 | NUR ---
Spoke with Noble Kasper from Ethics and reviewed case prior to Pt visit. Pt resting in bed and is intubated. No S/S of distress at this time. Spoke with bedside RN Magy and discussed case. Pt has poor prognosis and Transplan Team coming to review case. Left message with [facility] Sweeper [employer] with request for a return phone call. Palliative Care will remain available.
--- NOTE | 2019-05-27 10:59 | NUR ---
Spiritual care visit conducted. I sat with patient with my hand on his shoulder and provided a calming presnce, recitation of scripture and prayer.
--- NOTE | 2019-05-27 11:10 | NUR ---
PT'S AGATROBAN WAS RESTARTED AT 0755, BUT JUST DISCOVERED THAT THE TUBE WAS DISCONNECTED FROM PT. INFORMED PHARMACY FOR CALCULATION OF LABS THAT AGATROBAN WAS ACTUALLY RESTARTED AT 1100.
--- NOTE | 2019-05-27 11:22 | NUR ---
Pt still intubated with no S/S of distress. Chaplain Humphreys at bedside and discussed case. Time offers some suggestions in attempting to find NOK. Called and spoke with [facility] Dispatch with little information found. At one point Pt lived in [facility]. Called and spoke with [place] [employer] Records Division. No information found except a citation. No emergency contact or NOK listed. Spoke with [facility] Department as suggested by [place] [employer]. No imformation found as well. Palliative Care will remain available.
--- NOTE | 2019-05-27 12:27 | NUR ---
REASSESSMENT: PT REMAINS UNRESPONSIVE ON THE VENTILATOR. PUPILS FIXED AND DILATED. PT'S BP HAS ACTUALLY BEEN TRENDING UP SO LEVOPHED HAS BEEN TITRATED DOWN ACCORDINGLY, SEE FLOW SHEET. FS GLUCOSE AT NOON WAS 68, 12.5GM D50 GIVEN PER ORDERS AND REPEAT GLUCOSE WAS 140. PT HAS PUT OUT ABOUT 350ML OF CL YELLOW URINE THIS MORNING. TF PER OGT. AWAITING DR. ATWOOD'S ROUNDS TO DETERMINE PLAN. PALLIATIVE CARE CONTINUING TO WORK ON FINDING NEXT OF KIN, BUT HAVE HAD NO SUCCESS SO FAR.
[2019-05-27 14:23] LABS: PCO2 Arterial 31.5 mmHg (35-45); PO2 Arterial 85.3 mmHg (80-100); pH Blood Arterial 7.39 (7.35-7.45)
--- NOTE | 2019-05-27 14:36 | NUR ---
Pt resting in bed and is intubated. Conferenced with Noble Kasper from Ethics, Transplant Team, ICU Director Yanira, [employer] Combination Teacher Mark, and Bedside RN Magy. Discussed case and Policies. Fixture Relamper contacted and NOK provided. [facility] Fitting Room Supervisor arrives and positively identifies Pt. Noble Kasper to contact NOK. Palliative Care will remain available.
--- NOTE | 2019-05-27 15:10 | NUR ---
Converstion facilitated with the [facility] Transplant Team, ICU clinical staff and palliative care Nursing pertaining to patient organ donation eligibility, positive identification of the principal, and hospital policy standards and practices relating thereto. Beny PADGETT provided definitive confirmation of the principals person. The medical staff credentialing coordinator located the patients ANTHONY and gave us his name and contact information. I contacted the the NOK Jarrett, notified him of his brothers bleak situation and poor medical outlook and offered encrouagement, emotional support and basic information. Jarrett will be traveling from [place] and is expected to arive either late this evening or early in the a.m. The household personal assistant, the ICU director, the transplant team, ICU nursing staff and palliative care were all very instrumental in moving the organ donation conversation gently and respectfully forward, and re-uniting Jarrett with his brother Chris. Thank you for this consult. Noble Kasper Th.D.
--- NOTE | 2019-05-27 18:33 | NUR ---
SHIFT SUMMARY: PT REMAINED UNRESPONSIVE AND ON THE VENT TODAY. STILL HAS NO PUPILLARY REFLEX, BREATHING AT A RATE OF 20 WITH THE VENT. APNEA TEST WASN'T DONE TODAY BECAUSE PT'S BROTHER WAS LOCATED AND CONTACTED. HE IS DRIVING UP AND ANTICIPATED TO BE HERE TOMORROW MORNING. LUNGS REMAIN CLEAR, SR IN THE 70S THIS EVENING. BP CONTINUED TO TREND UP SO LEVOPHED WAS TITRATED DOWN ACCORDINGLY, SEE FLOWSHEET. PT HAD A LARGE BM THIS EVENING. TOLERATING TF WITH ABOUT 100ML RESIDUALS. CONTINUING TO MONITOR.
--- NOTE | 2019-05-27 23:32 | NUR ---
ASSUMED CARE OF PT, REPORT RCV'D FROM OLIVIA COLBERT. PT INTUBATED, VENT SETTINGS AC 20/500/5/30%. LEVOPHED @ 8 MCG/MIN, VASOPRESSIN @0.4 U/MIN Y SITED. AGATROBAN @ 0.4 ML/HR, MANAGED BY PHARMACY. D5 @ 200 ML/HR. MYCAMINE STARTED THIS EVENING D/T POSITIVE BLOOD CULTURES-YEAST. VHP @ GOAL RATE 30 ML/HR, 80 RESIDUALS REFED. PT COMPLETELY UNRESPONSIVE AND FLACCID. PUPILS FIXED AND DIALATED, NO GAG/COUGH/SWALLOW NOTED. PT REMAINS UNSEDATED AND UNRESTRAINED. SEE FULL SHIFT ASSESSMENT.
[2019-05-28 03:32] LABS: BASOPHILS ABSOLUTE AUTO 0.01 K/mm3 (0.00-0.23); BASOPHILS PERCENT AUTO 0 % (0-2); Hematocrit 20.7 % (37.0-53.0); Mean Corpuscular HGB Conc 33.8 g/dL (31.5-36.5); Mean Corpuscular Volume 86 fL (80-100); Mean Platelet Volume 12.5 fL (9.1-12.4); NRBC ABSOLUTE 0.02 K/mm3 (0.00-0.02); NRBC Auto 0.3 /100 WBC (0.0-0.2); RDW Coefficient Variation 14.9 % (11.7-14.2); RDW Standard Deviation 47.2 fL (35.1-46.3); Red Blood Cell Count 2.41 M/mm3 (4.30-5.90); White Blood Cell Count 5.72 K/mm3 (4.00-11.30)
[2019-05-28 03:37] LABS: EOSINOPHILS ABSOLUTE AUTO 0.14 K/mm3 (0.00-0.68); EOSINOPHILS PERCENT AUTO 2 % (0-6); IMMATURE GRAN ABSOLUTE AUTO 0.07 K/mm3 (0.00-0.10); IMMATURE GRAN PERCENT AUTO 1 % (0-1); LYMPHOCYTES ABSOLUTE AUTO 0.16 K/mm3 (0.84-5.20); LYMPHOCYTES PERCENT AUTO 3 % (21-46); MONOCYTES ABSOLUTE AUTO 0.06 K/mm3 (0.16-1.47); MONOCYTES PERCENT AUTO 1 % (4-13); NEUTROPHILS ABSOLUTE AUTO 5.28 K/mm3 (1.96-9.15); NEUTROPHILS PERCENT AUTO 92 % (41-73)
[2019-05-28 03:38] LABS: Platelet Count 41 K/mm3 (150-400)
[2019-05-28 04:06] LABS: Alanine Aminotransfer (ALT/SGP 21 U/L (12-78); Albumin, Blood 0.8 g/dL (3.4-5.0); Albumin/Globulin Ratio 0.4 (0.8-1.8); Alk Phos 30 U/L (50-136); Anion Gap 8 mmol/L (6-16); Aspartate Aminotrans (AST/SGOT 18 U/L (12-37); Bilirubin, Total 0.3 mg/dL (0.1-1.0); Blood Urea Nitrogen 6 mg/dL (8-24); Bun/Creatinine Ratio 14.7 (12.0-20.0); CO2, Blood 15 mmol/L (21-32); Chloride, Blood 108 mmol/L (98-108); Creatinine, Blood 0.41 mg/dL (0.60-1.20); Glomerular Filtration Rate >60 (60-); Glucose, Blood 117 mg/dL (70-99); Phosphorus, Blood 1.4 mg/dL (2.5-4.9); Potassium, Blood 2.2 mmol/L (3.5-5.5); Sodium, Blood 131 mmol/L (136-145); Total Protein, Blood 2.8 g/dL (6.4-8.2)
[2019-05-28 04:09] LABS: Calcium, Blood <5.0 mg/dL (8.5-10.1)
--- NOTE | 2019-05-28 06:35 | NUR ---
SHIFT SUMMARY NO ACUTE CHANGES OVERNIGHT. VENT SETTINGS REMAIN THE SAME AC 20/500/5/30%. LEVOPHED @3 MCG/MIN, VASOPRESSIN 0.4 U/MIN, D5W@ 200 ML/HR. AGATROBAN PLACED ON STANDBY FROM [id number], RESTARTED @ 0.2 ML/HR. PT RECEIVING 1 AMP CALCIUM GLUCONATE AND 30 MMOL KPHOS THIS MORNING. TEMP MAINTAINED @96.3-96.6. PT HAD MULTIPLE EPISODES OF FORMED TO LOOSE BOWEL MOVEMENTS. FAMILY IS EXPECTED TO BE HERE THIS MORNING FROM [place]. DONOR TEAM UPDATED. WILL REPORT TO DAYSHIFT NURSE.
--- NOTE | 2019-05-28 08:15 | NUR ---
INITIAL ASSESSMENT PATIENT INTUBATED. NO SEDATION. PATIENT UNRESPONSIVE. NO MOVEMENT NOTED. PUPILS 6+ IN SIZE, FIXED, NO MOVEMENT OR REACTION. NO GAG, COUGH OR SWALLOW REFLEXES NOTED. PATIENT EMACIATED. PATIENT HAS NO SIGNS OF PAIN OR DISCOMFORT NOTED. PATIENT HAS TEMP OF 96.9 DEGREES FAHRENHEIT. PATIENT ON VENT SETTINGS OF AC 20, PEEP 5, TV 500, AND 25% FIO2. LUNGS CLEAR THROUGHOUT. NO SPUTUM FROM ETT THIS AM. PATIENT RIDING VENT. PATIENT IN SR, HR 60S TO 70S. BP STABLE ON LEVOPHED AT 5 MCG/ MINUTE AND VASOPRESSIN AT 0.04 UNITS/ MINUTE. RADIAL AND TIBIAL PULSES 1+ IN STRENGTH. PEDIS PULSES DOPPLERED. ABDOMEN SOFT, NONDISTENDED, WITH HYPOACTIVE BS NOTED. LAST BM PUMP MECHANIC ON LAUNDRY ASSISTANT. OG IN PLACE. RESIDUAL OF 65 MLS OBTAINED AND REINSTILLED THIS AM. VHP TF INFUSING AT GOAL RATE OF 30 MLS/ HOUR WITH 30 ML WATER FLUSH Q4H. TEMP PROBE TRIPLETT IN PLACE, DRAINING YELLOW COLORED URINE. FEET COOL, SWOLLEN AND TIGHT. FEET PURPLE AND BLACK. BLACK TOES ARE HARD TO TOUCH. PICS IN PATIENT CHART. D5W INFUSING AT 200 MLS/ HOUR. ARGATROBAN INFUSING AT 0.2 MLS/ HOUR. PATIENT RECEIVING 30 MM K PHOS AND RECEIVED 1 AMP CALCIUM GLUCONATE THIS AM FOR POTASSIUM OF 2.2, PHOS OF 1.4 AND CALCIUM OF UNDER 5 THIS AM. BED LOW. WILL CONTINUE TO MONITOR PATIENT FREQUENTLY THROUGHOUT SHIFT.
--- NOTE | 2019-05-28 11:30 | NUR ---
Pt visit this AM. Pt's brother Jarertt and Jarrett's at bedside. Pt resting in bed and appears comfortable with no S/S of distress. ICU Director Som Doyle, Chaplain Warren, Bedside RN Mary, Dr Ricci, and this RN present during visit. Dr Ricci educates family on events leading up to Pt's current condition. Supportive and therapeutic listening provided to family. Jarrett reports plan is for Pt's mother to come up hopefully by tomorrow. Plan is to allow family to process information. Palliative Care will remain available for therapeutic visits.
--- NOTE | 2019-05-28 12:00 | NUR ---
NEURO STATUS REMAINS UNCHANGED FROM INITIAL ASSESSMENT. PATIENT REMAINS SATTING 90% AND GREATER ON SAME VENT SETTINGS. PATIENT REMAINS IN SR, HR IN THE 60S TO 70S. BP STABLE ON LEVOPHED AT 6 MCG/ MINUTE AND VASOPRESSIN AT 0.04 UNITS/ MINUTE. URINE KHUSHBU IN COLOR. TF RESIDUAL OF 50 MLS- OBTAINED AND REINSTILLED. BS 119- NO COVERAGE INDICATED. NO OTHER ACUTE CHANGES TO NOTE ON AT THIS TIME. WILL CONTINUE TO MONITOR.
--- NOTE | 2019-05-28 13:37 | NUR ---
TRANSPLANT TEAM INTO PATIENT ROOM TO SPEAK WITH BROTHER, DESEAN, AND GIVE INFORMATION ON POTENTIAL DONATION. BROTHER STATED THAT HE WOULD SPEAK WITH HIS MOTHER IN [place].
[2019-05-28 15:23] LABS: PCO2 Arterial 26.6 mmHg (35-45); PO2 Arterial 79.3 mmHg (80-100); pH Blood Arterial 7.48 (7.35-7.45)
--- NOTE | 2019-05-28 16:00 | NUR ---
PATIENT REMAINS INTUBATED WITHOUT SEDATION. PATIENT AFEBRILE. NO SIGNS OF PAIN. PATIENT REMAINS SATTING 90% AND GREATER ON SAME VENT SETTINGS. PATIENT REMAINS IN HR 60S TO 70S AND ON PRESSORS. RECTAL TUBE IN PLACE FOR LIQUID STOOLS. FAMILY REMAINS AT BEDSIDE. NO OTHER ACUTE CHANGES TO NOTE ON AT THIS TIME. WILL CONTINUE TO MONITOR.
[2019-05-28 16:25] LABS: PCO2 Arterial 31.1 mmHg (35-45); PO2 Arterial 471 mmHg (80-100); pH Blood Arterial 7.43 (7.35-7.45)
--- NOTE | 2019-05-28 16:47 | NUR ---
Spoke with family and they report plan to allow for organ donation. Pt's son inquires details regarding transporting Pt's body to [place] including cost versus cremation. Called local home for idea of cost and detailed involment of transporting Pt. Relayed information obtained to family. Family reports plan to have Pt cremated but still have concerns regarding their finances and cost. Family report plan to eat and go to [employer] to rest and will be back. Spoke with Noble Kasper and relayed family concerns regarding ability to pay for cremation. Noble will research possible options to help offset cost. Plan is for RT to perform apnea test today. Transplant team present and reviewing Pt's chart. Palliative Care will remain available.
[2019-05-28 17:16] LABS: PCO2 Arterial 45.3 mmHg (35-45); PO2 Arterial 496 mmHg (80-100)
[2019-05-28 17:17] LABS: Albumin, Blood 1.3 g/dL (3.4-5.0); Anion Gap 10 mmol/L (6-16); Blood Urea Nitrogen 10 mg/dL (8-24); Bun/Creatinine Ratio 21.3 (12.0-20.0); CO2, Blood 21 mmol/L (21-32); Calcium, Blood 7.6 mg/dL (8.5-10.1); Chloride, Blood 83 mmol/L (98-108); Creatinine, Blood 0.47 mg/dL (0.60-1.20); Glomerular Filtration Rate >60 (60-); Glucose, Blood 114 mg/dL (70-99); Potassium, Blood 3.4 mmol/L (3.5-5.5); Sodium, Blood 114 mmol/L (136-145)
[2019-05-28 18:09] LABS: PO2 Arterial 419 mmHg (80-100)
[2019-05-28 18:10] LABS: pH Blood Arterial 7.29 (7.35-7.45)
--- NOTE | 2019-05-28 18:35 | NUR ---
DR. ATWOOD INFORMED OF LAB RESULTS. INFORMED THAT SODIUM 114, POTASSIUM 3.4, CALCIUM 7.6, PHOSPHORUS 2.0, AND ALBUMIN 1.3. STATED HE WOULD PUT ORDERS IN.
--- NOTE | 2019-05-28 18:47 | NUR ---
SHIFT SUMMARY PATIENT REMAINED INTUBATED AND WITHOUT SEDATION. PATIENT REMAINED UNRESPONSIVE, NO GAG, NO COUGH, NO SWALLOW REFLEXES. PUPILS REMAINED FIXED WITH NO MOVEMENT OR REACTION TO LIGHT. PATIENT REMAINED AFEBRILE. PATIENT HAD NO SIGNS OF PAIN. PATIENT REMAINED SATTING 90% AND GREATER ON VENT SETTINGS OF AC 20, TV 500, PEEP 5, FIO2 25%. LUNGS REMAINED CLEAR. NO SPUTUM BEING SUCTIONED FROM ETT. PATIENT REMAINED IN SR, HR 60S TO 70S. BP REMAINED STABLE ON LEVOPHED BETWEEN 3 AND 6 MCG/ MINUTE AND VASOPRESSIN AT 0.04 UNITS/ MINUTE. PEDAL PULSES REMAINED DOPPLER. TOES REMAIN BLACK/ PURPLE, COOL AND HARD TO TOUCH. DR. ATWOOD VIEWED FEET SEVERAL TIMES TODAY. RECTAL TUBE INSERTED FOR BROWN, LIQUID STOOLS. VHP REMAINED INFUSING AT GOAL RATE OF 30 MLS/ HOUR WITH 30 ML WATER FLUSH Q4H. RESIDUALS 50 TO 65 MLS THIS SHIFT. TRIPLETT DRAINED ADEQUATE AMOUNT OF KHUSHBU COLORED URINE. D5W INFUSED MOST OF THE SHIFT AT 200 MLS/ HOUR. DR. ATWOOD PLACED ORDERS TO CHANGE TO NS AFTER SODIUM CAME BACK LOW AT 114. ARGATROBAN REMAINS INFUSING AT 0.2 MLS/ HOUR. PATIENT RECEIVING ZOSYN AND ORDER PLACED TODAY TO START MYCAMINE. BROTHER DESEAN AND HIS DESHAWN HERE MOST OF THE DAY. DESEAN IS COMMUNICATING WITH PATIENT'S MOTHER ON WISHES FOR PATIENT CARE. REPORT WILL BE GIVEN TO ASSUMING NEWS REEL CAMERAMAN NURSE SHORTLY.
--- NOTE | 2019-05-28 22:13 | NUR ---
ASSUMED CARE AT 1900, REPORT RECEIVED FROM LEXIE BAKER. PT UNRESPONSIVE. ITRACE PERFORMED, ADDITIONAL FLUIDS/MEDICATIONS ADDED TO LINES. ORDERS AND LABS DISCUSSED WITH OFFGOING NURSE AT BEDSIDE. VENT SETTINGS CHECKED, AC 20, TV 500, PEEP 5, FIO2 25% . DISCUSSED PLAN OF CARE WITH DR. ATWOOD AND TRANSPLANT NURSES. PT FAMILY HAS ARRIVE, PT'S BROTHER AND . TRANSPLANT NURSES SPOKE WITH FAMILY.
[2019-05-28 23:21] LABS: Anion Gap 9 mmol/L (6-16); Blood Urea Nitrogen 9 mg/dL (8-24); Bun/Creatinine Ratio 17.6 (12.0-20.0); CO2, Blood 20 mmol/L (21-32); Calcium, Blood 7.1 mg/dL (8.5-10.1); Chloride, Blood 85 mmol/L (98-108); Creatinine, Blood 0.51 mg/dL (0.60-1.20); Glomerular Filtration Rate >60 (60-); Glucose, Blood 65 mg/dL (70-99); Phosphorus, Blood 2.7 mg/dL (2.5-4.9); Potassium, Blood 3.8 mmol/L (3.5-5.5); Sodium, Blood 114 mmol/L (136-145)
--- NOTE | 2019-05-29 00:04 | NUR ---
CRITICAL LABS DR ATWOOD NOTIFIED OF ALL NEW LABS. ORDERS RECIEVED TO DC NS INFUSION AND START 3% SALINE AT 75 ML/HR. ADDITIONAL LAB ORDERS RECIEVED. TRANSPLANT TEAM UPDATED TO LAB RESULTS AND FLUID CHANGES.
--- NOTE | 2019-05-29 01:28 | NUR ---
CRITICAL VALUE NOTIFICATION PTT 107.9 . DISCUSSED WITH CHARGE ANUP BAKER. NOTIFIED IVY HINES PHARMACIST FOR TITRATION ORDERS. RECEIVED ORDER TO TURN OFF FOR ONE HOUR. ARGATROBAN TURNED OFF AT 0126.
--- NOTE | 2019-05-29 05:36 | NUR ---
FAMILY WAS AT BEDSIDE MOST OF EVENING, SPEAKING WITH TRANSPLANT RNs. PLAN OF CARE WAS DISCUSSED, ALONG WITH TENTATIVE TIMETABLE. DELAY EXPLAINED SO CORRECTION OF LAB VALUES COULD BE ACCOMPLISHED. FAMILY STATED CONCERN OVER EVENTS LEADING TO ADMISSION, FAMILY WILL CONTACT PT'S INTERNATIONAL AFFAIRS VICE PRESIDENT AND THE POLICE OFFICERS WHO FOUND PATIENT. BROTHER DESEAN WANTED TO KNOW IF PATIENT HAD ASKED FOR A "AREN" PRIOR TO BECOMING UNRESPONSIVE, IT IS DESEAN'S NICKNAME. PT'S BLOOD PRESSURES WERE STABLE MOST OF THE EVENING, WITH SOME TITRATIONS OF LEVOPHED. PT'S LUNG SOUNDS REMAINED CLEAR THROUGH EVENING. BED BATH GIVEN. PT'S SODIUM IS TRENDING UP. CHARGE NURSE UPDATED. TRENDING PTT's, PHARMACY UPDATED.
[2019-05-29 06:18] LABS: Hematocrit 27.2 % (37.0-53.0); Hemoglobin 9.4 g/dL (13.5-17.5); Mean Corpuscular HGB 28.6 pg (26.0-34.0); Mean Corpuscular HGB Conc 34.6 g/dL (31.5-36.5); NRBC ABSOLUTE 0.12 K/mm3 (0.00-0.02); NRBC Auto 2.2 /100 WBC (0.0-0.2); RDW Coefficient Variation 14.6 % (11.7-14.2); RDW Standard Deviation 43.7 fL (35.1-46.3); Red Blood Cell Count 3.29 M/mm3 (4.30-5.90); White Blood Cell Count 5.44 K/mm3 (4.00-11.30)
[2019-05-29 06:20] LABS: Mean Corpuscular Volume 83 fL (80-100)
[2019-05-29 06:21] LABS: Mean Platelet Volume 13.3 fL (9.1-12.4); Platelet Count 49 K/mm3 (150-400)
[2019-05-29 06:43] LABS: Anion Gap 11 mmol/L (6-16); Blood Urea Nitrogen 9 mg/dL (8-24); Bun/Creatinine Ratio 17.8 (12.0-20.0); CO2, Blood 18 mmol/L (21-32); Calcium, Blood 8.4 mg/dL (8.5-10.1); Chloride, Blood 89 mmol/L (98-108); Creatinine, Blood 0.51 mg/dL (0.60-1.20); Glomerular Filtration Rate >60 (60-); Glucose, Blood 60 mg/dL (70-99); Phosphorus, Blood 2.4 mg/dL (2.5-4.9); Potassium, Blood 3.3 mmol/L (3.5-5.5); Sodium, Blood 118 mmol/L (136-145)
[2019-05-29 07:13] LABS: BAND PERCENT MAN 15 % (0-8); BASOPHILS PERCENT MAN 0 % (0-2); EOSINOPHILS PERCENT MAN 2 % (0-6); LYMPHOCYTES PERCENT MAN 2 % (21-46); MONOCYTES ABSOLUTE MAN 0.05 K/mm3 (0.16-1.47); MONOCYTES PERCENT MAN 1 % (4-13); NEUTROPHILS ABSOLUTE MAN 5.16 K/mm3 (1.96-9.15); SEG NEUTROPHILS PERCENT MAN 80 % (41-73); TOTAL CELLS COUNTED 100
--- NOTE | 2019-05-29 11:56 | NUR ---
INITIAL ASSESSMENT PT INTUBATED, NOT ON SEDATION. PT UNRESPONSIVE, NO MOVEMENT OR REACTION TO NOXIOUS STIMULI. NO GAG, COUGH, OR SWALLOW REFLEXES NOTED. PUPILS 7+ FIXED, NO DOLLS EYES OR MOVEMENT NOTED. PT AFEBRILE. NO SIGNS OF PAIN NOTED. PT ON VENT SETTINGS: AC-20, TV-500, PEEP-5, FI02 25% PT RIDING VENT WITH RR OF 20. LUNGS DIMINISHED IN RLL, COARSE IN ALL OTHER LOBES. PT IN SR, HR 60'S. BP STABLE WITH LEVOPHED AT 3MCG/MIN AND VASOPRESSIN AT 0.04UNITS/MIN. RIGHT PEDAL PULSE DOPPLER, RADIAL AND LEFT PEDAL BILAT 1+ IN STRENGTH. BOWEL SOUNDS HYPOACTIVE. TUBE FEED RESIDUAL OF 280ML REMOVED, 250ML REINSTILLED. TUBE FEED PUT ON HOLD. RECTAL TUBE IN PLACE DRAINING BROWN LIQUID STOOL. TEMP PROBE TRIPLETT DRAINING YELLOW LIQUID URINE. BILATERAL FEET AND TOES PURPLE AND BLACK. PICTURE IN PATIENTS CHAT. PT BEING REPOSITIONED EVERY TWO HOURS. 3% SALINE BEING INFUSED AT 75ML/HR. ARGATROBAN AT 0.2ML/HR. BED LOW, WILL CONTINUE TO MONITOR PATIENT FREQUENTLY THROUGHOUT SHIFT.
--- NOTE | 2019-05-29 12:15 | NUR ---
PATIENT NEURO STATUS REMAINS UNCHANGED. PATIENT AFEBRILE. PATIENT IN SR, HR IN THE 60S. BP STABLE ON LEVOPHED AT 2 MCG/ MINUTE AND VASOPRESSIN AT 0.04 UNITS PER MINUTE. RESIDUAL OF 330 MLS OBTAINED FROM TF. 250 MLS REINSTILLED. TUBE FEED PLACED ON HOLD. BLOOD SUGAR OF 76; NO COVERAGE INDICATED. PATIENT GIVEN 40 MG LASIX IV. NO OTHER ACUTE CHANGES TO NOTE ON AT THIS TIME. FAMILY AT BEDSIDE.
--- NOTE | 2019-05-29 14:38 | NUR ---
CONSENT OBTTAINED FROM THE PATIENT'S FAMILY MEMEBER, BROTHER DESEAN. CC
--- NOTE | 2019-05-29 15:13 | NUR ---
Therapeutic visit and support for family at [facility]. Pt no longer a candidate for organ donation. Family has decided to withdraw care. Educated family on what to expect once life support is withdrawn. Placed orders for comfort care and discontinued intubation per V/O from Dr Ricci. Family tearful and offered emotional support and therapeutic listening. Offered condolences. Family appears to be grieving appropriately.
--- NOTE | 2019-05-29 15:21 | NUR ---
FAMILY MADE PATIENT DNR AND COMFORT CARE AND WANTED TO EXTUBATE AND LET GO PEACEFULLY AFTER RECEIVED INFORMATION THAT PATIENT NOT CONSIDERED TRANSPLANT CANDIDATE. ALINE COOL, CLEAR QUALITY TECH, ALIEN POON, PALLIATIVE CARE, RT AND PRIMARY NURSE AT BEDSIDE WITH PATIENT'S BROTHER, DESEAN, AND [id number], DESHAWN. PATIENT EXTUBATED AT 1457. PATIENT PASSED PEACEFULLY AND WITHOUT PAIN OR DISCOMFORT AT 1508. FAMILY GIVEN TIME WITH PATIENT.
--- NOTE | 2019-05-29 15:58 | NUR ---
DESEAN LATIF, EMAIL: [email or web address]. CELL PHONE: [phone]. WORK PHONE: [phone].
--- NOTE | 2019-05-29 16:25 | NUR ---
PATIENT DISCHARGED WITH CHAPMICKEY OF [facility]. FAMILY JUST LEFT AFTER SPEAKING WITH ALINE COOL AGAIN. FAMILY APPRECIATIVE.
--- NOTE | 2019-05-29 16:37 | NUR ---
Facilitated body collection and crematory service expense navigation with Zoila Cline [facility] on behalf of the patient and the patients family. Provided encouragement, support and comfort to family during extubation proceedings and susbequent to the patients demise. Family showed clear evidence of closure, acceptance and gratitude. No indications of complex bereavement noted.
== END 2019-05-29 15:08 | DRG 974 ==
LOC: ER 08:30 → ERHOLD 08:31 → MEDS 16:50 → ICUW 23:53
PROVIDERS: Emergency Medicine; Internal Medicine; Internal Medicine Critical Care Medicine; Nurse Practitioner Acute Care; ADMIT Internal Medicine
PROC: 02HV33Z Insertion of Infusion Device into Superior Vena Cava, Percutaneous Approach (ICD-10-PCS; principal; 2019-05-23)
PROC: 0BH17EZ Insertion of Endotracheal Airway into Trachea, Via Natural or Artificial Opening (ICD-10-PCS; 2019-05-23)
PROC: 5A1955Z Respiratory Ventilation, Greater than 96 Consecutive Hours (ICD-10-PCS; 2019-05-23)
PROC: 3E033XZ Introduction of Vasopressor into Peripheral Vein, Percutaneous Approach (ICD-10-PCS; 2019-05-23)
DX: A41.9 Sepsis, unspecified organism (principal); G92 Toxic encephalopathy; B20 Human immunodeficiency virus [HIV] disease; R40.20 Unspecified coma; J96.01 Acute respiratory failure with hypoxia; R65.21 Severe sepsis with septic shock; T33.822A Superficial frostbite of left foot, initial encounter; T33.821A Superficial frostbite of right foot, initial encounter; E23.2 Diabetes insipidus; G93.1 Anoxic brain damage, not elsewhere classified; B49 Unspecified mycosis; I77.1 Stricture of artery; I66.3 Occlusion and stenosis of cerebellar arteries; T68.XXXA Hypothermia, initial encounter; E86.0 Dehydration; D72.829 Elevated white blood cell count, unspecified; I10 Essential (primary) hypertension; R40.2434 Glasgow coma scale score 3-8, 24 hours or more after hospital admission; D69.49 Other primary thrombocytopenia; I99.8 Other disorder of circulatory system
CPT/HCPCS: 31500; 31720; 36415; 36556; 36600; 51701; 51702; 70450; 71045; 73620; 80048; 80053; 80069; 81001; 81003; 82140; 82533; 82550; 82553; 82803; 82947; 83605; 83735; 84100; 84132; 84295; 84443; 84484; 85025; 85610; 85730; 86022; 87040; 87070; 87086; 87106; 87205; 93005; 93010; 93306; 93925; 94002; 94003; 95819; 96361-59; 96365; 96374-59; 96375; 96375-59; 96376; 99285-25; C1751; C9113; G0378; G0480; J0360; J0461; J0610; J0696; J0883; J1630; J1644; J1815; J1940; J2060; J2248; J2543; J2597; J2704; J3010; J3411; J3480; J7030; J7040; J7042; J7050; J7060; J7070; P9046